=== PATIENT | male | born 1985 | race Caucasian/White ===

== ENCOUNTER 2019-11-15 00:20 | Emergency (ER) | payer OTHER ==
[2019-11-15] MEDS ORDERED: Lidocaine 2% MPF 10 ML AMP (For Epidural Use) ONE (00:35)
[2019-11-15] MEDS ORDERED: Lidocaine 1% (PF) 30 ML VIAL ONE (00:37)
[2019-11-15] MEDS ORDERED: Lidocaine 1% PF 5 ML VIAL ONE (00:38)
[2019-11-15] MEDS ORDERED: Bacitracin 1 PK ONE ×2 (01:09)
[2019-11-15] MEDS ORDERED: traMADol HCl 50 MG TAB ONE (01:52)
--- NOTE | 2019-11-15 08:25 | RAD ---
LEFT HAND 3 VIEWS: Date: 11/15/2019 PROVIDED CLINICAL HISTORY: Hand injury. FINDINGS: There is no evidence for fracture or other acute osseous abnormality. If there is persistent clinical concern, conservative management and follow-up imaging are advised. IMPRESSION: As above. POS: OFF
== END 2019-11-15 01:58 ==
LOC: ERS 00:20
DX: S61.211A Laceration without foreign body of left index finger without damage to nail, initial encounter (principal); W29.8XXA Contact with other powered hand tools and household machinery, initial encounter
CPT/HCPCS: 12002; 96374; J0690; J2001